=== PATIENT | male | born 1970 | race Two or more races ===

== ENCOUNTER 2018-06-27 08:38 | Inpatient (IN) | payer SELFPAY ==
[2018-06-27] MEDS ORDERED: hydrALAZINE HCL 20 MG/ML VL IV ONE (09:30)
[2018-06-27 09:47] LABS: Basophils # (auto) 0 uL; Basophils % (auto) 0.2 % (0.0-2.0); Eosinophils # (auto) 0 uL; Eosinophils % (auto) 0.4 % (0.0-7.0); Hematocrit 48.2 % (41.0-53.0); Hemoglobin 16.1 g/dL (13.5-17.5); Lymphocytes # (auto) 2.8 uL; Lymphocytes % (auto) 31.4 % (10.0-50.0); Mean Corpuscular Hemoglobin 29.7 pg (28.0-32.0); Mean Corpuscular Hgb Conc. 33.4 g/dL (32.0-36.0); Mean Corpuscular Volume 88.9 fL (80.0-100.0); Monocytes # (auto) 0.6 uL; Monocytes % (auto) 6.8 % (0.0-12.0); Neutrophils # (auto) 5.4 uL; Neutrophils % (auto) 61.2 % (37.0-80.0); Platelet Count (auto) 238 10^3/uL (140-450); Red Blood Cells 5.42 10^6/uL (4.5-5.90); Red Cell Distribution Width 13.6 % (11.8-14.3); White Blood Cell 8.8 10^3/uL (4.4-10.8)
[2018-06-27 10:18] LABS: Albumin 3.6 g/dL (3.4-5.0); Calcium 8.4 mg/dL (8.5-10.1); Magnesium 2.2 mg/dL (1.6-2.6); Potassium 4.2 mmol/L (3.5-5.1)
[2018-06-27 10:23] LABS: BUN/Creatinine Ratio 14.1; Bilirubin, Total 0.4 mg/dL (0.2-1.0); Total Protein 7.1 g/dL (6.4-8.2)
[2018-06-27] MEDS ORDERED: SODIUM CHLORIDE 0.9% 1,000 ML IV ONE (10:36)
[2018-06-27] MEDS ORDERED: NITROGLYCERIN 0.4 MG SL TAB SL ONE (10:45)
[2018-06-27] MEDS ORDERED: ASPirin 81 mg TAB PO ONE (10:45)
[2018-06-27] MEDS ORDERED: MORPHINE SULFATE 4 MG/ML SYR/VIAL IV PRN ×2 (15:30)
[2018-06-27] MEDS ORDERED: NITROGLYCERIN 0.4 MG SL TAB SL PRN ×2 (15:30)
[2018-06-27] MEDS ORDERED: DEXTROSE (50%) 50ML SYRG IV PRN (15:30)
[2018-06-27] MEDS ORDERED: ACETAMINOPHEN 325 MG TAB PO PRN (15:30)
[2018-06-27] MEDS ORDERED: ALUM & MAG HYDROX-SIMETH LIQ(MAALOX) 30 ML PO ONE (15:30)
[2018-06-27] MEDS ORDERED: ZOLPIDEM TARTRATE 5 MG TAB PO PRN (15:30)
[2018-06-27] MEDS ORDERED: LORazepam 0.5 MG TAB PO PRN (15:30)
[2018-06-27] MEDS ORDERED: ONDANSETRON HCL 4 MG/2 ML VIAL IV PRN (15:30)
[2018-06-27] MEDS ORDERED: LISINOPRIL 10 MG TAB ONE (15:53)
[2018-06-27] MEDS ORDERED: LISINOPRIL 10 MG TAB PO ONE (16:00)
[2018-06-27] MEDS: InsuLIN REG 1unit/0.01ml Soln (100units/ml) SC SCH ×2 (17:00→22:00)
[2018-06-27] MEDS: ACCU-CHEK COMFORT CURVE STRIP VI SCH ×2 (17:00→22:09)
[2018-06-27 18:28] LABS: Prothrombin Time 10.7 sec (9.27-12.13)
[2018-06-27 19:37] VITALS: BP 142/81
[2018-06-27] MEDS: CARVEDILOL 3.125 MG TAB PO SCH (21:28)
[2018-06-27 21:30] VITALS: BP 138/74
[2018-06-27] MEDS ORDERED: ATORVASTATIN 20 MG TAB PO SCH (22:00)
[2018-06-27] MEDS: SODIUM CHLOR 0.9% PF (SALINE LOCK) 10ML VIAL/SYR IV SCH (22:09)
[2018-06-27] MEDS: ENALAPRIL MALEATE 2.5 MG TAB PO SCH (22:13)
[2018-06-28 05:00] VITALS: BP 132/75
[2018-06-28] MEDS: SODIUM CHLOR 0.9% PF (SALINE LOCK) 10ML VIAL/SYR IV SCH ×2 (05:50→14:32)
[2018-06-28 06:08] LABS: Basophils # (auto) 0 uL; Basophils % (auto) 0.2 % (0.0-2.0); Eosinophils # (auto) 0 uL; Eosinophils % (auto) 0.5 % (0.0-7.0); Hematocrit 46.3 % (41.0-53.0); Lymphocytes # (auto) 2.3 uL; Lymphocytes % (auto) 27.8 % (10.0-50.0); Mean Corpuscular Hemoglobin 30.5 pg (28.0-32.0); Mean Corpuscular Hgb Conc. 34.5 g/dL (32.0-36.0); Mean Corpuscular Volume 88.3 fL (80.0-100.0); Monocytes # (auto) 0.6 uL; Monocytes % (auto) 7.5 % (0.0-12.0); Neutrophils # (auto) 5.2 uL; Nucleated Red Blood Cells % 0.1 %; Platelet Count (auto) 237 10^3/uL (140-450); Red Blood Cells 5.25 10^6/uL (4.5-5.90); Red Cell Distribution Width 13.9 % (11.8-14.3); White Blood Cell 8.2 10^3/uL (4.4-10.8)
[2018-06-28 06:30] LABS: Albumin 3.5 g/dL (3.4-5.0); Calcium 8.3 mg/dL (8.5-10.1); Potassium 3.6 mmol/L (3.5-5.1)
[2018-06-28 06:37] LABS: BUN/Creatinine Ratio 16.9; Bilirubin, Total 0.7 mg/dL (0.2-1.0); Total Protein 6.7 g/dL (6.4-8.2)
[2018-06-28] MEDS: ACCU-CHEK COMFORT CURVE STRIP VI SCH ×2 (06:47→11:30)
[2018-06-28] MEDS: InsuLIN REG 1unit/0.01ml Soln (100units/ml) SC SCH ×2 (06:52→11:30)
[2018-06-28 08:00] VITALS: BP 131/69
[2018-06-28] MEDS ORDERED: LISINOPRIL 10 MG TAB PO SCH (10:00)
[2018-06-28] MEDS ORDERED: ASPirin 81 mg TAB PO SCH (10:00)
[2018-06-28] MEDS ORDERED: CLOPIDOGREL BISULFATE 75 MG TAB PO SCH (10:00)
[2018-06-28] MEDS ORDERED: DOCUSATE SOD 100 MG CAP PO SCH (10:00)
[2018-06-28] MEDS: CARVEDILOL 3.125 MG TAB PO SCH (10:00)
[2018-06-28] MEDS: ENALAPRIL MALEATE 2.5 MG TAB PO SCH (10:12)
[2018-06-28 12:00] VITALS: BP 140/75
== END 2018-06-28 15:20 | disposition left against medical advice (07) | DRG 281 ==
LOC: EDBD 08:38 → ER 08:38 → TELE 15:33 → TELE-CENTR 17:40
PROVIDERS: ADMIT Internal Medicine; ATTEND Family Medicine
DX: I21.4 Non-ST elevation (NSTEMI) myocardial infarction (principal); I69.354 Hemiplegia and hemiparesis following cerebral infarction affecting left non-dominant side; I10 Essential (primary) hypertension; F17.210 Nicotine dependence, cigarettes, uncomplicated; I25.10 Atherosclerotic heart disease of native coronary artery without angina pectoris; E11.9 Type 2 diabetes mellitus without complications; Z53.21 Procedure and treatment not carried out due to patient leaving prior to being seen by health care provider; R00.1 Bradycardia, unspecified; E78.00 Pure hypercholesterolemia, unspecified; I25.2 Old myocardial infarction; Z83.3 Family history of diabetes mellitus
CPT/HCPCS: 36415; 71046; 80053; 80061; 82962; 83036; 83735; 83880; 84443; 84484; 85025; 85610; 93005; 93306; 94761; 96361; 96374; G0378; J1815